=== PATIENT | female | born 1980 | race Caucasian/White ===

== ENCOUNTER 2016-07-23 19:55 | Emergency (ER) | payer OTHER ==
[~2016-07-23] VITALS: Ht 165.1 cm; Wt 74.8 kg
[~2016-07-23 19:55] MED LIST: PRILOSEC20 M1 PO
[2016-07-23 20:17] VITALS: BP 125/76
--- NOTE | 2016-07-23 20:24 | NUR ---
AMBULATED TO ER BED 1
--- NOTE | 2016-07-23 20:25 | NUR ---
PT BIB BOYFRIEND C/O COUGH, CONGESTION, CHEST TIGHTNESS X 1 WEEK. PT STATES HX OF CHOLECYSTECTOMY. PT HAS BEEN TAKING COUGH AND COLD MEDICINE AT HOME WELL AN OLD PRESCRIPTION OF AZYTHROMYCIN. DENIES N/V/D; SKIN IS PINK/WARM/DRY; AAOX4 WITH EVEN AND STEADY GAIT; LUNGS CLEAR BL; HR EVEN AND REGULAR; PT DENIES ANY FEVER OR CP AT THIS TIME; PATIENT STATES PAIN OF 4/10 AT THIS TIME; VSS; PATIENT POSITIONED FOR COMFORT; HOB ELEVATED; BEDRAILS UP X2; BED DOWN. ER MD MADE AWARE OF PT STATUS.
--- NOTE | 2016-07-23 20:26 | NUR ---
MOVED TO ER BED 6
[2016-07-23 20:45] VITALS: BP 125/76
--- NOTE | 2016-07-23 20:45 | NUR ---
Patient discharged with v/s stable. Written and verbal after care instructions given and explained. Patient alert, oriented and verbalized understanding of instructions. Ambulatory with steady gait. All questions addressed prior to discharge. ID band removed. Patient advised to follow up with PMD. Rx of AMOXICILLIN 500MG AND DEXTROMETHORPHAN/HYDROBROMIDE/PROMETHAZINE HYDROCHLORIDE 15MG-6.25MG /5ML given. Patient educated on indication of medication including possible reaction and side effects. Opportunity to ask questions provided and answered.
== END 2016-07-23 20:45 | disposition home or self-care (01) ==
LOC: MED 19:56
DX: J20.9 Acute bronchitis, unspecified (principal); R03.0 Elevated blood-pressure reading, without diagnosis of hypertension